=== PATIENT | male | born 1970 ===

== ENCOUNTER 2019-03-29 12:20 | Outpatient (REF) | payer MEDICAID, SELFPAY ==
[2019-03-29 19:23] LABS: Anion Gap 9.6 mmol/L (3-11); BUN 22 mg/dL (7-18); CO2 26.4 mmol/L (21.0-32.0); CREATININE 0.94 mg/dL (0.70-1.30); Calcium 9.1 mg/dL (8.5-10.1); Chloride 105 mmol/L (98-107); Glucose 109 mg/dL (70-100); Potassium 4.3 mmol/L (3.5-5.1); Sodium 141 mmol/L (136-145); TSH 0.49 uIU/mL (0.358-3.74)
[2019-04-01 11:54] LABS: Hepatitis C Ab w Rflx HCV PCR Negative (NEGAT)
[2019-04-01 12:04] LABS: HIV-1/2 Ag & Ab Screen Negative (NEGAT)
== END 2019-03-29 12:40 ==
LOC: NCHCN 12:20
PROVIDERS: PCP Internal Medicine; Visit Provider Internal Medicine
DX: M54.12 Radiculopathy, cervical region (principal); M75.20 Bicipital tendinitis, unspecified shoulder; R03.0 Elevated blood-pressure reading, without diagnosis of hypertension; F11.20 Opioid dependence, uncomplicated
CPT/HCPCS: 80048; 86803; 87389; 84443

== ENCOUNTER 2022-01-06 20:24 | Outpatient (REF) | payer MEDICAID, SELFPAY ==
--- OUTSIDE RECORDS SUMMARY | 2022-01-06 20:26 | XMS_ITS ---
:1970 Author Care Team Providers Name Role Phone MONIQUE WEST Primary Care Provider [phone] ARMAND CUELLAR MD Orthopedic Surgeon [phone] Allergies Code Code System Name Reaction Severity Status Onset Sulfa ? ? Active ? (Sulfonamid e Antibiotics ) Medications Name Status Start Date Stop Date ? ? amitriptyline 25 mg tablet Completed 10/07/200810/07 1 (one) to 2 (two) Tablet: at bedtime bupropion HCl XL 300 mg 24 hr Active ? No t available tablet, extended release Chantix Starting Month Box 0.5 Active ? N ot available mg (11)-1 mg (42) tablets in dose pack cyclobenzaprine 10 mg tablet Completed 08/19/2008 1 (one) Tablet: three times daily, as needed Feldene 20 mg capsule Completed 09/09/2008 09/09/2008 1 (one) Capsule: Daily fexofenadine 180 mg tablet Completed 07/28/200707/28 1 (one) Tablet: Daily ibuprofen 800 mg tablet Completed 09/05/2006 09/05/20 1 (one) Tablet: TID naproxen 500 mg tablet Active ? Not avail able Nexium 40 mg capsule,delayed release Completed 07/28/2007 07/28/2007 1 (one) Cap DR: Daily nicotine 21 mg/24 hr daily Active ? Not a vailable transdermal patch penicillin V potassium 500 mg tablet Completed 02/19/2008 02/19/2008 1 (one) Tablet: Three times a day Percocet 5 mg-325 mg tablet Completed 06/19/200805/24 1 (one) Tablet: every 4 to 6 hours as needed prednisone 10 mg tablet Completed 01/02/2008 01/02/20 08 5 Tablet: daily ranitidine 150 mg tablet Active ? Not herve ilable Suboxone 2 mg-0.5 mg Active ? Not availab le sublingual film triamcinolone acetonide 0.1 % Active ? No t available topical cream Ultracet 37.5 mg-325 mg tablet Completed 01/03/2008 0 01/03/2008 1-2 Tablet: every 6 hours as needed for pain Problems Name Status Onset Date Source ? Asthma Active 08/07/2019 ? Gastroesophageal Reflux Disease Active ? History Low Back Pain Active ? History Backache Active ? History Disorder of Skin And/or Subcutaneous Active ? History Tissue High Risk Sexual Behavior Active ? Histor y Disorder of Trunk Active ? History Procedures Date Name Performed by ? 02/20/2006 Appendectomy Information not avai lable Notes: at [facility] ? Lumbar Spine Surgery Information not herve ilable 08/07/2019 MRI, Shoulder, W/o Contrast [facility] Radiology (Internal) [address] [place] [id number] (Work Place) Results Lab Results Date Name Specimen Result Interpretation Description Value Range Status Address ? 03/02/2017 Urinalysis, UR ? UA-color yellow pale Final [facility] Dipstick, yellow Hospita [facility] Micro (Int ernal): [address] ? ? UR ? UA-appear clear clear Final [facility] ab (Internal) : [address] ? ? UR ? UA-spec 1.020 1.003-1.03 Final [place] [id number] [facility] ab (Internal) : [address] t ? ? UR ? UA-pH 6.0 [pH] 4.6-8.0 Final [facility] ab (Internal) : [address] ? ? UR ? UA-leuk negative negative Final [facility] ab (Internal) : [address] ? ? UR ? [facility]-nitrit [facility] negative [facility] [address] ? ? UR ? UA-prot negative negative Final [facility] ab (Internal) : [address] ? ? UR ? UA-gluc negative negative Final [facility] ab (Internal) : [address] ? ? UR ? UA-ketone negative negative Final No r[facility] ab (Internal) : [address] t ? ? UR ? UA-urobil normal normal Final [facility] (Internal) : [address] ? ? UR ? UA-bili negative negative Final [facility] ab (Internal) : [address] ? ? UR ? UA-blood negative negative Final [facility] ab (Internal) : [address] Past Encounters None recorded. Social History Tobacco Smoking Status Current Every Day Smoker Vaccine List Vaccine Type DT (pediatric) 10/23/2003 Hep A-Hep B 05/09/2007 Hep B, adult 02/19/2007 Plan of Care Reminders Provider Appointments None ? ? recorded. Lab None ? ? recorded. Referral None ? ? recorded. Procedures None ? ? recorded. Surgeries None ? ? recorded. Imaging None ? ? recorded. Vitals 08/07/2019 03:00PM Consult 30 Height Weight BMI Blood Pressure 177.8 cm 93.76 kg 29.7 kg/m2 138/78 mm[Hg] 10/07/2008 Blood Pressure 118/74 mm[Hg] 09/09/2008 Blood Pressure 130/70 mm[Hg] 08/19/2008 Blood Pressure 124/76 mm[Hg] 07/28/2008 Blood Pressure 124/90 mm[Hg] 07/07/2008 Blood Pressure 136/80 mm[Hg] 06/30/2008 Blood Pressure 124/78 mm[Hg] 06/20/2008 Weight Blood Pressure 95.71 kg (1) 134/78 mm[Hg] (2) 150/90 mm[Hg] 03/19/2008 Weight Blood Pressure 94.8 kg 108/62 mm[Hg] 03/06/2008 Weight Blood Pressure 94.8 kg 126/80 mm[Hg] 02/21/2008 Weight Blood Pressure 92.99 kg 120/78 mm[Hg] 01/05/2008 Weight Blood Pressure 92.53 kg 120/68 mm[Hg] 01/03/2008 Weight Blood Pressure 94.8 kg 110/70 mm[Hg] 12/13/2007 Weight Blood Pressure 93.89 kg 120/78 mm[Hg] 09/22/2007 Weight Blood Pressure 92.99 kg 140/100 mm[Hg] 07/28/2007 Weight Blood Pressure 90.26 kg 122/80 mm[Hg] 05/04/2007 Weight Blood Pressure 87.54 kg 128/80 mm[Hg] 02/21/2007 Weight Blood Pressure 90.95 kg 124/78 mm[Hg] 12/20/2006 Blood Pressure 114/70 mm[Hg] 11/29/2006 Blood Pressure 120/76 mm[Hg] 11/08/2006 Blood Pressure 124/64 mm[Hg] 10/17/2006 Blood Pressure 118/76 mm[Hg] 09/26/2006 Blood Pressure 118/72 mm[Hg] 09/05/2006 Blood Pressure 112/80 mm[Hg] 08/22/2006 Height Weight Blood Pressure 172.72 cm 87.09 kg 114/80 mm[Hg]
[2022-01-06 21:56] LABS: CREATININE 0.9 mg/dL (0.70-1.30); Calculated LDL 91 mg/dL (<100); Cholesterol 174 mg/dL (<200); HDL Cholesterol 26 mg/dL (40-60); Hemoglobin A1C 5.9 % (<5.7); Triglyceride 288 mg/dL (<150)
== END 2022-01-06 20:25 | disposition home or self-care (01) ==
LOC: NCHCN 20:24
PROVIDERS: PCP Internal Medicine; Visit Provider Internal Medicine
DX: R73.09 Other abnormal glucose (principal)
CPT/HCPCS: 80061; 82565; 83036

== ENCOUNTER 2022-11-16 17:56 | Outpatient (REF) | payer MEDICAID, SELFPAY ==
[2022-11-16 20:56] LABS: BUN 17 mg/dL (7-18); CREATININE 0.9 mg/dL (0.70-1.30); Calcium 9.2 mg/dL (8.5-10.1); Calculated LDL 140 mg/dL (<100); Chloride 104 mmol/L (98-107); Cholesterol 216 mg/dL (<200); Glucose 107 mg/dL (74-106); HDL Cholesterol 34 mg/dL (40-60); Potassium 4.2 mmol/L (3.5-5.1); Sodium 139 mmol/L (136-145); Triglyceride 213 mg/dL (<150)
== END 2022-11-16 17:57 | disposition home or self-care (01) ==
LOC: NCHCN 17:56
PROVIDERS: PCP Internal Medicine; Visit Provider Internal Medicine
DX: R73.03 Prediabetes (principal); J44.9 Chronic obstructive pulmonary disease, unspecified; F11.20 Opioid dependence, uncomplicated; E78.00 Pure hypercholesterolemia, unspecified
CPT/HCPCS: 80048; 80061

== ENCOUNTER 2023-02-09 15:28 | Outpatient (REF) | payer MEDICAID, SELFPAY ==
[2023-02-09 19:13] LABS: Bilirubin Negative (Negative); Blood Negative (Negative); Clarity Clear (Clear); Glucose Negative (Negative); Ketones Negative (Negative); Leukocyte Esterase Negative (Negative); Nitrite Negative (Negative); Specific Gravity 1.025 (1.005-1.025); Urobilinogen 0.2 mg/dL (Up to 0.2)
[2023-02-11 12:45] LABS: Chlamydia Result Negative (Negative); GC Result Negative (Negative)
[2023-02-12 10:10] LABS: HIV-1/2 Ag & Ab Screen Negative (Negative)
[2023-02-13 10:06] LABS: Hepatitis C Ab w Rflx HCV PCR Negative (Negative)
[2023-02-13 11:34] LABS: Syphilis Serology (RPR) Negative (Negative)
== END 2023-02-09 15:29 | disposition home or self-care (01) ==
LOC: NCHCN 15:28
PROVIDERS: PCP Internal Medicine; Visit Provider Internal Medicine
DX: Z20.2 Contact with and (suspected) exposure to infections with a predominantly sexual mode of transmission (principal); Z11.4 Encounter for screening for human immunodeficiency virus [HIV]; R73.9 Hyperglycemia, unspecified; Z11.59 Encounter for screening for other viral diseases
CPT/HCPCS: 86803; 87389; 87491; 87591; 81003; 83036; 86592

== ENCOUNTER 2023-02-10 16:17 | Outpatient (REF) | payer MEDICAID, SELFPAY ==
[2023-02-10 19:34] LABS: Hemoglobin A1C 5.9 % (<5.7)
== END 2023-02-10 16:18 | disposition home or self-care (01) ==
LOC: NCHCN 16:17
PROVIDERS: PCP Internal Medicine; Visit Provider Internal Medicine
DX: R73.09 Other abnormal glucose (principal)
CPT/HCPCS: 83036

== ENCOUNTER 2024-01-31 18:34 | Outpatient (REF) | payer MEDICAID, SELFPAY ==
[2024-01-31 20:08] LABS: Hemoglobin A1C 5.7 % (<5.7)
[2024-01-31 21:08] LABS: ALT 29 U/L (16-63); AST 13 U/L (15-37); Albumin 4.2 g/dL (3.4-5.0); Alkaline Phosphatase 72 U/L (46-116); Anion Gap 10.8 mmol/L (3-11); BUN 17 mg/dL (7-18); Bilirubin, Total 0.5 mg/dL (0.2-1.0); CO2 27.2 mmol/L (21.0-32.0); Calcium 9.2 mg/dL (8.5-10.1); Calculated LDL 68 mg/dL (<100); Chloride 109 mmol/L (98-107); Cholesterol 134 mg/dL (<200); Estimated GFR 90.56 (mL/min/1.73m2); Glucose 111 mg/dL (74-106); HDL Cholesterol 35 mg/dL (40-60); Potassium 4.6 mmol/L (3.5-5.1); Sodium 147 mmol/L (136-145); Total Protein 7.2 g/dL (6.4-8.2); Triglyceride 155 mg/dL (<150)
== END 2024-01-31 18:35 | disposition home or self-care (01) ==
LOC: NCHCN 18:34
PROVIDERS: PCP Internal Medicine; Visit Provider Internal Medicine
DX: R73.03 Prediabetes (principal)
CPT/HCPCS: 80053; 80061; 83036

== ENCOUNTER 2025-02-26 11:58 | Outpatient (REF) | payer MEDICAID, SELFPAY ==
[2025-02-26 20:16] LABS: ALT 25 U/L (16-63); AST 19 U/L (15-37); Albumin 3.8 g/dL (3.4-5.0); Alkaline Phosphatase 78 U/L (46-116); Anion Gap 2.8 mmol/L (3-11); BUN 14 mg/dL (7-18); Bilirubin, Total 0.3 mg/dL (0.2-1.0); CO2 30.2 mmol/L (21.0-32.0); CREATININE 0.9 mg/dL (0.70-1.30); Calcium 9.3 mg/dL (8.5-10.1); Calculated LDL 76 mg/dL (<100); Chloride 106 mmol/L (98-107); Cholesterol 131 mg/dL (<200); Estimated GFR 102.12 (mL/min/1.73m2); Glucose 112 mg/dL (74-106); HDL Cholesterol 35 mg/dL (>or=40); Potassium 5.6 mmol/L (3.5-5.1); Sodium 139 mmol/L (136-145); Total Protein 7.5 g/dL (6.4-8.2); Triglyceride 104 mg/dL (<150)
== END 2025-02-26 11:59 | disposition home or self-care (01) ==
LOC: NCHCN 11:58
PROVIDERS: PCP Internal Medicine; Visit Provider Internal Medicine
DX: R03.0 Elevated blood-pressure reading, without diagnosis of hypertension (principal)
CPT/HCPCS: 80053; 80061